=== PATIENT | female | born 1950 | race Caucasian/White ===

== ENCOUNTER 2016-07-14 10:06 | Emergency (ER) | payer OTHER ==
[~2016-07-14] VITALS: Ht 158.8 cm; Wt 80.1 kg
[2016-07-14 10:17] VITALS: BP 122/59
[2016-07-14] MEDS ORDERED: NACL 0.9% 1,000 ML IV SCH (10:26)
[2016-07-14] MEDS ORDERED: ONDANSETRON 4 MG/2 ML VIAL IVP ONE (10:30)
[2016-07-14] MEDS ORDERED: FAMOTIDINE 20 MG/2 ML VIAL IVP ONE (10:30)
--- NOTE | 2016-07-14 11:30 | NUR ---
66F BIB SON C/O N/V/D X LAST NIGHT; PT STATES ATE [facility] LAST NIGHT AND STARTED HAVING SYMPTOMS AT 0200 TODAY; SKIN IS PINK/WARM/DRY; AAOX4 WITH EVEN AND STEADY GAIT; LUNGS CLEAR BL; HR EVEN AND REGULAR; PT DENIES ANY FEVER, CP, SOB, OR COUGH AT THIS TIME; PATIENT STATES ABDOMINAL PAIN OF 5/10 AT THIS TIME; VSS; PATIENT POSITIONED FOR COMFORT; HOB ELEVATED; BEDRAILS UP X2; BED DOWN. ER MD MADE AWARE OF PT STATUS.
--- NOTE | 2016-07-14 12:45 | NUR ---
PT LYING ON BED;NO ACUTE DISTRESS NOTED AT THIS TIME;WILL CONTINUE TO MONITOR PT.
--- NOTE | 2016-07-14 13:18 | NUR ---
PT AMBUALTED TO THE RESTROOM;NO ACUTE DISTRESS NOTED.
--- NOTE | 2016-07-14 13:52 | NUR ---
Patient discharged with v/s stable. Written and verbal after care instructions given and explained. Patient alert, oriented and verbalized understanding of instructions. Ambulatory with steady gait. All questions addressed prior to discharge. ID band removed. Patient advised to follow up with PMD. Rx of TYLENOL given. Patient educated on indication of medication including possible reaction and side effects. Opportunity to ask questions provided and answered.ENCOURAGED PT TO INCREASE FLUID INTAKE.
[2016-07-14 13:54] VITALS: BP 114/63
== END 2016-07-14 13:52 | disposition home or self-care (01) ==
LOC: MED 10:06
DX: K52.9 Noninfective gastroenteritis and colitis, unspecified (principal)
CPT/HCPCS: 36415; 80053; 81003; 81025; 82150; 83690; 85025; 96361; 96374; 96375; 99284; J2405; J3490; J7030

== ENCOUNTER 2016-07-18 11:38 | Emergency (ER) | payer OTHER ==
[~2016-07-18] VITALS: Ht 162.6 cm; Wt 70.8 kg
[2016-07-18 11:51] VITALS: BP 119/70
--- NOTE | 2016-07-18 13:10 | NUR ---
Patient ambulated to bed 6.
--- NOTE | 2016-07-18 14:13 | NUR ---
PATIENT PRESENTS TO ED WITH C/O DIARRHEA AND VOMITING . PT STATES SHE STARTED HAVING SYMPTOMS 5 DAYS AGO . SKIN IS PINK/WARM/DRY; AAOX4 WITH EVEN AND STEADY GAIT; LUNGS CLEAR BL; HR EVEN AND REGULAR; PT DENIES ANY FEVER, CP, SOB, OR COUGH AT THIS TIME; PATIENT STATES PAIN OF 0/10 AT THIS TIME; VSS; PATIENT POSITIONED FOR COMFORT; HOB ELEVATED; BEDRAILS UP X2; BED DOWN. ER MD MADE AWARE OF PT STATUS.
--- NOTE | 2016-07-18 14:25 | NUR ---
Patient discharged with v/s stable. Written and verbal after care instructions given and explained. Patient alert, oriented and verbalized understanding of instructions. Ambulatory with steady gait. All questions addressed prior to discharge. ID band removed. Patient advised to follow up with PMD. Rx of CIPRO AND ZOFRAN given. Patient educated on indication of medication including possible reaction and side effects. Opportunity to ask questions provided and answered.
[2016-07-18 14:37] VITALS: BP 125/65
== END 2016-07-18 14:25 | disposition home or self-care (01) ==
LOC: MED 11:38
DX: R10.13 Epigastric pain (principal); R11.2 Nausea with vomiting, unspecified; R19.7 Diarrhea, unspecified; Z88.2 Allergy status to sulfonamides; Z88.1 Allergy status to other antibiotic agents